=== PATIENT | male | born 1975 | race Caucasian/White ===

== ENCOUNTER → 2018-06-13 13:10 | Outpatient (CLI) | payer OTHER, SELFPAY ==
--- NOTE | 2018-06-13 | DI.MRI.S_ITS ---
PROCEDURE: MR CERVICAL SPINE WO CON INDICATIONS: MUSCLE WEAKNESS TECHNIQUE: Noncontrast sagittal T1 spin echo and T2 fast spin echo, sagittal STIR, foraminal oblique sagittal T2 fast spin echo, and axial gradient echo or T2 fast spin echo through the cervical spine. COMPARISON: None. FINDINGS: Image quality: Excellent. Alignment and Curvature: There is straightening of the normal cervical lordosis. No focal AP alignment abnormality is seen. Bone Marrow: Marrow demonstrates normal overall signal. Spinal Cord: Visualized spinal cord has normal size and signal. No cerebellar tonsillar herniation. Paraspinous Soft Tissues: No paravertebral masses. Prevertebral soft tissues are normal in thickness. C2-C3: The disc height is well-preserved. Loss of disc signal is seen at this level. There is a mild central disc osteophyte protrusion seen, as on series 5 image 13. No neural foraminal narrowing is seen. Mild central canal narrowing is seen. C3-C4: The disc height is relatively well-preserved. There is a mild central disc osteophyte protrusion seen. No significant neural foraminal or central canal narrowing can be seen. C4-C5: Mild loss of disc height is seen. Loss of disc signal is seen. A mild degree of generalized disc osteophyte complex is seen. Mild facet joint hypertrophy is seen. There is mild right-sided and no left-sided neural foraminal narrowing seen. No central canal narrowing is seen. C5-C6: Moderate loss of disc height is seen. Loss of disc signal is seen. Moderate generalized disc osteophyte complex is seen. Uncovertebral joint hypertrophy is seen at this level. There is moderate to severe right-sided and at least moderate left-sided neural foraminal narrowing seen. Moderate central canal narrowing is seen. C6-C7: Moderate loss of disc height is seen. Loss of disc signal is seen. Moderate to prominent disc osteophyte complex is seen. Uncovertebral joint hypertrophy is seen at this level. There is moderate to severe bilateral neural foraminal narrowing seen at this level. Moderate to severe central canal narrowing is seen, with associated mass effect upon the ventral spinal cord, as on series 5 image 35. C7-T1: No significant abnormality is seen. IMPRESSION: Premature cervical spine degenerative changes are seen, which are most prominent at the C6-C7 level, where there is moderate to severe bilateral neural foraminal narrowing and moderate to severe central canal narrowing present. Dictated by: Roger Acosta M.D. on 06/13/2018 at 14:09 Approved by: Roger Acosta M.D. on 06/13/2018 at 14:13
== END ==
PROVIDERS: Visit Provider Student in an Organized Health Care Education/Training Program
DX: M47.812 Spondylosis without myelopathy or radiculopathy, cervical region (principal); M48.02 Spinal stenosis, cervical region; M62.81 Muscle weakness (generalized)
CPT/HCPCS: 72141